=== PATIENT | male | born 1940 | race Caucasian/White ===

== ENCOUNTER 2016-12-24 18:55 | Inpatient (IN) | payer OTHER ==
[~2016-12-24] VITALS: Ht 185.4 cm; Wt 90.9 kg
[~2016-12-24 18:55] MED LIST: ALBUTEROL2.5 MG/31; AMLODIPINE10 MG PO; FLO4 PO; LOT20 PO; LOVASTATIN40 M1 PO; METOPROLOL25 MG PO; SPIRIVA; [UNRECOGNIZED DRUG - CODE] PO
[2016-12-24 19:51] LABS: BASOPHIL % 0.1 % (0-2); RED CELL DISTRIBUTION WIDTH 13.3 % (11.5-14.5)
[2016-12-24 19:58] LABS: CALCIUM 9.1 mg/dL (8.5-10.1); CARBON DIOXIDE 23.1 mmol/L (21-32); CHLORIDE SERUM 102 mmol/L (98-107); CREATININE SERUM 1.5 mg/dL (0.7-1.3); GLUCOSE SERUM 115 mg/dL (74-106); POTASSIUM SERUM 3.6 mmol/L (3.5-5.1); SODIUM SERUM 136 mmol/L (136-145)
[2016-12-24 19:59] LABS: PLATELET COUNT 123 x10^3mcL (130-400)
[2016-12-24 20:25] LABS: ALBUMIN 3.7 g/dL (3.4-5.0); ALKALINE PHOSPHATASE 90 U/L (46-116); ALT/SGPT 28 U/L (16-63); AST/SGOT 19 U/L (15-37); BILIRUBIN TOTAL 0.78 mg/dL (0.20-1.00); TOTAL PROTEIN, SERUM 7.1 g/dL (6.4-8.2)
[2016-12-24 22:17] LABS: microscopic required? NO
[2016-12-24 22:27] LABS: urine erythrocyte NEGATIVE (NEGATIVE)
[2016-12-24] MEDS ORDERED: LIPITOR80 MG PO (23:01)
[2016-12-24] MEDS ORDERED: ISOSORBIDE MONO30 MG PO (23:02)
[2016-12-24] MEDS ORDERED: ASPIRIN ADULT L81 M5 PO (23:02)
[2016-12-24] MEDS ORDERED: CLOPIDOGREL75 M1 PO (23:03)
[2016-12-24] MEDS ORDERED: LISINOPRIL20 MG PO (23:03)
[2016-12-24 23:48] VITALS: BP 120/55
[2016-12-25 00:13] LABS: MAGNESIUM 1.7 mg/dL (1.8-2.4); PHOSPHOROUS 1.2 mg/dL (2.5-4.9)
[2016-12-25 00:14] LABS: CHOLESTEROL/HDL RATIO 2.2
[2016-12-25 00:23] LABS: FREE T4 1.46 ng/dL (0.76-1.46); FREE THYROXINE INDEX 3.7 ug/dL (1.4-4.5); T4(THYROXINE) 9.1 ug/dL (4.7-13.3)
[2016-12-25 00:56] LABS: T3 TOTAL 0.99 ng/mL
[2016-12-25 06:20] VITALS: BP 108/51
[2016-12-25 06:29] LABS: BASOPHIL % 0.3 % (0-2); RED CELL DISTRIBUTION WIDTH 13.4 % (11.5-14.5)
[2016-12-25 06:48] LABS: PLATELET COUNT 107 x10^3mcL (130-400)
[2016-12-25 07:04] LABS: CALCIUM 8.4 mg/dL (8.5-10.1); CARBON DIOXIDE 26.1 mmol/L (21-32); CHLORIDE SERUM 110 mmol/L (98-107); CREATININE SERUM 1.4 mg/dL (0.7-1.3); GLUCOSE SERUM 102 mg/dL (74-106); POTASSIUM SERUM 4.1 mmol/L (3.5-5.1); SODIUM SERUM 142 mmol/L (136-145)
[2016-12-25 08:43] VITALS: BP 101/54
[2016-12-25 14:09] VITALS: BP 125/52
[2016-12-25 18:42] VITALS: BP 100/43
[2016-12-25 21:26] VITALS: BP 124/59
[2016-12-26 05:41] VITALS: BP 127/45
[2016-12-26 06:14] LABS: RED CELL DISTRIBUTION WIDTH 13.3 % (11.5-14.5)
[2016-12-26 06:41] LABS: CALCIUM 8.6 mg/dL (8.5-10.1); CARBON DIOXIDE 22.2 mmol/L (21-32); CHLORIDE SERUM 111 mmol/L (98-107); CREATININE SERUM 1.1 mg/dL (0.7-1.3); GLUCOSE SERUM 106 mg/dL (74-106); MAGNESIUM 2.3 mg/dL (1.8-2.4); PHOSPHOROUS 2.8 mg/dL (2.5-4.9); POTASSIUM SERUM 4.2 mmol/L (3.5-5.1); SODIUM SERUM 142 mmol/L (136-145)
[2016-12-26 06:56] LABS: BASOPHIL % 0 % (0-2); PLATELET COUNT 106 x10^3mcL (130-400)
[2016-12-26 09:01] VITALS: BP 121/60
[2016-12-26] MEDS ORDERED: LAC PO (10:44)
[2016-12-26] MEDS ORDERED: LEVAQUIN750 MG PO (10:45)
[2016-12-26] MEDS ORDERED: CLEOCIN HCL300 MG PO (10:47)
[2016-12-26 12:59] VITALS: BP 121/60
== END 2016-12-26 14:24 | disposition home or self-care (01) | DRG 177 ==
LOC: ED 18:55 → DU 22:55
PROVIDERS: Emergency Medicine; ADMIT Family Medicine Sports Medicine
DX: J69.0 Pneumonitis due to inhalation of food and vomit (principal); N17.0 Acute kidney failure with tubular necrosis; J44.1 Chronic obstructive pulmonary disease with (acute) exacerbation; I10 Essential (primary) hypertension; F43.23 Adjustment disorder with mixed anxiety and depressed mood; K21.9 Gastro-esophageal reflux disease without esophagitis; E83.42 Hypomagnesemia; D64.9 Anemia, unspecified; N40.0 Benign prostatic hyperplasia without lower urinary tract symptoms; Z95.5 Presence of coronary angioplasty implant and graft; Z87.891 Personal history of nicotine dependence; I25.10 Atherosclerotic heart disease of native coronary artery without angina pectoris; Z86.14 Personal history of Methicillin resistant Staphylococcus aureus infection; Z68.26 Body mass index [BMI] 26.0-26.9, adult
CPT/HCPCS: 83880; 84439; 94150; 97116-GP; J1956; J2920; J2930; J3475; J3490; J7030; J7620

== ENCOUNTER 2017-10-24 20:12 | Emergency (ER) | payer OTHER ==
[~2017-10-24] VITALS: Ht 185.4 cm; Wt 90.8 kg
[~2017-10-24 20:12] MED LIST changes: +ASPIRIN ADULT L81 M5 PO; +CLEOCIN HCL300 MG PO; +CLOPIDOGREL75 M1 PO; +ISOSORBIDE MONO30 MG PO; +LAC PO; +LEVAQUIN750 MG PO; +LIPITOR80 MG PO; +LISINOPRIL20 MG PO
[2017-10-24 20:56] VITALS: Ht 185.4 cm; Wt 90.8 kg
[2017-10-24 22:48] LABS: UA SPECIFIC GRAVITY <=1.005 (1.005-1.035); microscopic required? YES; urine erythrocyte 3+ (NEGATIVE)
[2017-10-24 22:50] LABS: BASOPHIL % 0.4 % (0-2); PLATELET COUNT 140 x10^3mcL (130-400); RED CELL DISTRIBUTION WIDTH 14.3 % (11.5-14.5)
[2017-10-24 22:57] LABS: CALCIUM 8.8 mg/dL (8.5-10.1); CARBON DIOXIDE 27.8 mmol/L (21-32); CHLORIDE SERUM 107 mmol/L (98-107); CREATININE SERUM 1.2 mg/dL (0.7-1.3); GLUCOSE SERUM 97 mg/dL (74-106); POTASSIUM SERUM 3.7 mmol/L (3.5-5.1); SODIUM SERUM 139 mmol/L (136-145)
[2017-10-24 23:02] LABS: ALBUMIN 3.6 g/dL (3.4-5.0); ALKALINE PHOSPHATASE 74 U/L (46-116); ALT/SGPT 25 U/L (16-63); AST/SGOT 22 U/L (15-37); BILIRUBIN TOTAL 0.64 mg/dL (0.20-1.00); LIPASE 64 IU/L (73-393); TOTAL PROTEIN, SERUM 6.9 g/dL (6.4-8.2)
[2017-10-25 00:14] VITALS: BP 145/89
== END 2017-10-25 00:14 | disposition home or self-care (01) ==
LOC: ED 20:12
PROVIDERS: Emergency Medicine
DX: N40.1 Benign prostatic hyperplasia with lower urinary tract symptoms (principal); I50.9 Heart failure, unspecified; I11.0 Hypertensive heart disease with heart failure; J45.909 Unspecified asthma, uncomplicated
CPT/HCPCS: J1885

== ENCOUNTER 2018-01-24 17:33 | Inpatient (IN) | payer OTHER ==
[~2018-01-24] VITALS: Ht 185.4 cm; Wt 88.9 kg
[2018-01-24 17:50] VITALS: Ht 185.4 cm; Wt 88.9 kg
[2018-01-24 18:22] LABS: microscopic required? YES; urine erythrocyte NEGATIVE (NEGATIVE)
[2018-01-24 18:22] LABS: BASOPHIL % 0 % (0-2); PLATELET COUNT 114 x10^3mcL (130-400)
[2018-01-24 18:26] LABS: CALCIUM 8.6 mg/dL (8.5-10.1); CARBON DIOXIDE 23.5 mmol/L (21-32); CHLORIDE SERUM 108 mmol/L (98-107); CREATININE SERUM 1.4 mg/dL (0.7-1.3); GLUCOSE SERUM 139 mg/dL (74-106); POTASSIUM SERUM 3.6 mmol/L (3.5-5.1); SODIUM SERUM 144 mmol/L (136-145)
[2018-01-24 18:32] LABS: ALBUMIN 3.7 g/dL (3.4-5.0); ALKALINE PHOSPHATASE 92 U/L (46-116); ALT/SGPT 32 U/L (16-63); AST/SGOT 18 U/L (15-37); BILIRUBIN TOTAL 0.65 mg/dL (0.20-1.00); TOTAL PROTEIN, SERUM 6.9 g/dL (6.4-8.2)
[2018-01-24] MEDS ORDERED: TRAMADOL HCL50 MG PO (19:31)
[2018-01-24] MEDS ORDERED: HYDRALAZINE HY100 MG PO (19:32)
[2018-01-24] MEDS ORDERED: LIPITOR40 MG PO (19:33)
[2018-01-24] MEDS ORDERED: PROSCAR5 MG PO (19:34)
[2018-01-24 19:44] LABS: MAGNESIUM 1.9 mg/dL (1.8-2.4); PHOSPHOROUS 1.7 mg/dL (2.5-4.9)
[2018-01-24 19:48] LABS: CHOLESTEROL/HDL RATIO 2.1
[2018-01-24 19:49] LABS: T3 TOTAL 1.12 ng/mL
[2018-01-24 19:57] LABS: FREE T4 1.21 ng/dL (0.76-1.46); FREE THYROXINE INDEX 3.8 ug/dL (1.4-4.5); T4(THYROXINE) 9.9 ug/dL (4.7-13.3)
[2018-01-24 22:28] VITALS: BP 122/61
[2018-01-24 23:21] VITALS: BP 122/61
[2018-01-25 05:40] VITALS: BP 113/56
[2018-01-25 06:27] LABS: RED CELL DISTRIBUTION WIDTH 13.8 % (11.5-14.5)
[2018-01-25 06:43] LABS: CALCIUM 8.4 mg/dL (8.5-10.1); CARBON DIOXIDE 24.7 mmol/L (21-32); CHLORIDE SERUM 106 mmol/L (98-107); CREATININE SERUM 1.6 mg/dL (0.7-1.3); GLUCOSE SERUM 161 mg/dL (74-106); POTASSIUM SERUM 3.8 mmol/L (3.5-5.1); SODIUM SERUM 141 mmol/L (136-145)
[2018-01-25 07:32] LABS: BASOPHIL % 0 % (0-2); PLATELET COUNT 105 x10^3mcL (130-400)
[2018-01-25 09:45] VITALS: BP 139/65
[2018-01-25 11:41] VITALS: BP 98/45
[2018-01-25 13:27] VITALS: BP 115/48
[2018-01-25 17:29] VITALS: BP 145/49
[2018-01-25 21:02] VITALS: BP 114/41
[2018-01-26 06:00] VITALS: BP 130/52
[2018-01-26 06:27] LABS: CALCIUM 8.3 mg/dL (8.5-10.1); CARBON DIOXIDE 25.8 mmol/L (21-32); CHLORIDE SERUM 113 mmol/L (98-107); CREATININE SERUM 1.3 mg/dL (0.7-1.3); GLUCOSE SERUM 161 mg/dL (74-106); MAGNESIUM 2.3 mg/dL (1.8-2.4); PHOSPHOROUS 3.1 mg/dL (2.5-4.9); POTASSIUM SERUM 4.7 mmol/L (3.5-5.1); SODIUM SERUM 144 mmol/L (136-145)
[2018-01-26 06:30] LABS: RED CELL DISTRIBUTION WIDTH 13.7 % (11.5-14.5)
[2018-01-26 06:38] LABS: BASOPHIL % 0 % (0-2); PLATELET COUNT 101 x10^3mcL (130-400)
[2018-01-26 09:51] VITALS: BP 143/47
[2018-01-26 13:01] VITALS: BP 124/48
[2018-01-26 17:44] VITALS: BP 136/42
[2018-01-26 20:36] VITALS: BP 143/35
[2018-01-27 05:38] VITALS: BP 143/62
[2018-01-27 07:54] LABS: CALCIUM 8.7 mg/dL (8.5-10.1); CARBON DIOXIDE 26.7 mmol/L (21-32); CHLORIDE SERUM 114 mmol/L (98-107); CREATININE SERUM 1.3 mg/dL (0.7-1.3); GLUCOSE SERUM 149 mg/dL (74-106); MAGNESIUM 2.3 mg/dL (1.8-2.4); PHOSPHOROUS 3.3 mg/dL (2.5-4.9); POTASSIUM SERUM 5.3 mmol/L (3.5-5.1); SODIUM SERUM 146 mmol/L (136-145)
[2018-01-27 09:13] VITALS: BP 148/51
[2018-01-27 09:30] LABS: BASOPHIL % 0 % (0-2); PLATELET COUNT 116 x10^3mcL (130-400); RED CELL DISTRIBUTION WIDTH 14.6 % (11.5-14.5)
[2018-01-27] MEDS ORDERED: LEVAQUIN750 MG PO (11:48)
[2018-01-27] MEDS ORDERED: PREDNISONE20 MG PO (11:48)
[2018-01-27] MEDS ORDERED: PREDNISONE10 MG PO ×2 (11:49→11:50)
[2018-01-27 11:50] VITALS: BP 128/55
[2018-01-27] MEDS ORDERED: PRE20 PO (11:50)
[2018-01-27 12:14] VITALS: BP 128/55
[2018-01-27 12:40] VITALS: BP 153/48
== END 2018-01-27 13:40 | disposition home or self-care (01) | DRG 871 ==
LOC: ED 17:33 → DU 19:09
PROVIDERS: Emergency Medicine; Internal Medicine
DX: A41.9 Sepsis, unspecified organism (principal); N17.0 Acute kidney failure with tubular necrosis; J96.01 Acute respiratory failure with hypoxia; N39.0 Urinary tract infection, site not specified; J44.1 Chronic obstructive pulmonary disease with (acute) exacerbation; E87.4 Mixed disorder of acid-base balance; R65.20 Severe sepsis without septic shock; I10 Essential (primary) hypertension; C67.9 Malignant neoplasm of bladder, unspecified; J20.9 Acute bronchitis, unspecified; D53.9 Nutritional anemia, unspecified; E83.39 Other disorders of phosphorus metabolism; I25.10 Atherosclerotic heart disease of native coronary artery without angina pectoris; Z99.81 Dependence on supplemental oxygen; Z68.27 Body mass index [BMI] 27.0-27.9, adult; Z95.1 Presence of aortocoronary bypass graft; Z95.5 Presence of coronary angioplasty implant and graft; F17.210 Nicotine dependence, cigarettes, uncomplicated
CPT/HCPCS: 83880; 84439; 97110-GP; 97116-GP; J0456; J0696; J1940; J1956; J2920; J3490; J7030; J7050; J7512; J7613; J7620; J7626; J7644; Q0092; Q9967

== ENCOUNTER 2018-02-10 16:31 | Inpatient (IN) | payer OTHER ==
[~2018-02-10] VITALS: Ht 185.4 cm; Wt 88.2 kg
[~2018-02-10 16:31] MED LIST changes: +ALBUD; -ALBUTEROL2.5 MG/31; +HYDRALAZINE HY100 MG PO; +LIPITOR40 MG PO; +METOPROLOL TART25 M1 PO; -METOPROLOL25 MG PO; +PRE20 PO; +PREDNISONE10 MG PO; +PREDNISONE20 MG PO; +PROSCAR5 MG PO; +TRAMADOL HCL50 MG PO
[2018-02-10 16:33] VITALS: Ht 185.4 cm; Wt 88.2 kg
[2018-02-10 18:53] LABS: BASOPHIL % 0.1 % (0-2); PLATELET COUNT 127 x10^3mcL (130-400); RED CELL DISTRIBUTION WIDTH 14.2 % (11.5-14.5)
[2018-02-10 19:10] LABS: microscopic required? YES; urine erythrocyte NEGATIVE (NEGATIVE)
[2018-02-10 19:15] LABS: ALKALINE PHOSPHATASE 66 U/L (46-116); ALT/SGPT 21 U/L (16-63); AST/SGOT 12 U/L (15-37); BILIRUBIN TOTAL 0.9 mg/dL (0.20-1.00); CALCIUM 8.8 mg/dL (8.5-10.1); CARBON DIOXIDE 25.9 mmol/L (21-32); CHLORIDE SERUM 104 mmol/L (98-107); CREATININE SERUM 1.2 mg/dL (0.7-1.3); GLUCOSE SERUM 165 mg/dL (74-106); POTASSIUM SERUM 4.1 mmol/L (3.5-5.1); SODIUM SERUM 137 mmol/L (136-145)
[2018-02-10 19:18] LABS: ALBUMIN 2.8 g/dL (3.4-5.0); TOTAL PROTEIN, SERUM 6.1 g/dL (6.4-8.2)
[2018-02-10 22:36] LABS: MAGNESIUM 2.1 mg/dL (1.8-2.4); PHOSPHOROUS 2.4 mg/dL (2.5-4.9)
[2018-02-10 22:45] LABS: T3 TOTAL 0.84 ng/mL
[2018-02-10 22:48] LABS: FREE T4 1.22 ng/dL (0.76-1.46); FREE THYROXINE INDEX 2.4 ug/dL (1.4-4.5); T4(THYROXINE) 6.4 ug/dL (4.7-13.3)
[2018-02-11] VITALS (7 sets, daily range): BP systolic 106–150; BP diastolic 59–80
[2018-02-11 04:14] LABS: BASOPHIL % 0.3 % (0-2); PLATELET COUNT 128 x10^3mcL (130-400); RED CELL DISTRIBUTION WIDTH 14.1 % (11.5-14.5)
[2018-02-11 04:20] LABS: CALCIUM 8.6 mg/dL (8.5-10.1); CARBON DIOXIDE 26.7 mmol/L (21-32); CHLORIDE SERUM 108 mmol/L (98-107); CREATININE SERUM 1.2 mg/dL (0.7-1.3); GLUCOSE SERUM 139 mg/dL (74-106); MAGNESIUM 2.2 mg/dL (1.8-2.4); PHOSPHOROUS 3.6 mg/dL (2.5-4.9); POTASSIUM SERUM 4.1 mmol/L (3.5-5.1); SODIUM SERUM 143 mmol/L (136-145)
[2018-02-11 15:28] LABS: AMPHETAMINE QUAL UR NONE DETECTED (See below)
[2018-02-12 06:03] VITALS: BP 139/64
[2018-02-12 06:08] LABS: CALCIUM 8.7 mg/dL (8.5-10.1); CARBON DIOXIDE 27.9 mmol/L (21-32); CHLORIDE SERUM 109 mmol/L (98-107); CREATININE SERUM 1.3 mg/dL (0.7-1.3); GLUCOSE SERUM 117 mg/dL (74-106); POTASSIUM SERUM 5.3 mmol/L (3.5-5.1); SODIUM SERUM 140 mmol/L (136-145)
[2018-02-12 07:28] LABS: BASOPHIL % 0.2 % (0-2); PLATELET COUNT 123 x10^3mcL (130-400); RED CELL DISTRIBUTION WIDTH 14.4 % (11.5-14.5)
[2018-02-12 10:21] VITALS: BP 146/69
[2018-02-12 13:00] VITALS: BP 121/56
[2018-02-12 16:28] VITALS: BP 132/69
[2018-02-12 21:04] VITALS: BP 146/53
[2018-02-13 04:28] VITALS: BP 146/53
[2018-02-13 05:51] VITALS: BP 150/58
[2018-02-13 06:11] LABS: BASOPHIL % 0.3 % (0-2); PLATELET COUNT 131 x10^3mcL (130-400); RED CELL DISTRIBUTION WIDTH 14.1 % (11.5-14.5)
[2018-02-13 07:12] LABS: CALCIUM 9.2 mg/dL (8.5-10.1); CARBON DIOXIDE 24.5 mmol/L (21-32); CHLORIDE SERUM 109 mmol/L (98-107); CREATININE SERUM 1.3 mg/dL (0.7-1.3); GLUCOSE SERUM 94 mg/dL (74-106); POTASSIUM SERUM 4.6 mmol/L (3.5-5.1); SODIUM SERUM 142 mmol/L (136-145)
[2018-02-13 08:20] VITALS: BP 147/66
[2018-02-13 13:15] VITALS: BP 108/49
[2018-02-13 17:15] VITALS: BP 101/40
[2018-02-13 20:42] VITALS: BP 124/82
[2018-02-14 05:11] VITALS: BP 133/50
[2018-02-14 06:15] LABS: BASOPHIL % 0.5 % (0-2); RED CELL DISTRIBUTION WIDTH 14.4 % (11.5-14.5)
[2018-02-14 06:44] LABS: CALCIUM 8.9 mg/dL (8.5-10.1); CARBON DIOXIDE 29.3 mmol/L (21-32); CHLORIDE SERUM 109 mmol/L (98-107); CREATININE SERUM 1.3 mg/dL (0.7-1.3); GLUCOSE SERUM 91 mg/dL (74-106); MAGNESIUM 2.2 mg/dL (1.8-2.4); PHOSPHOROUS 3.8 mg/dL (2.5-4.9); POTASSIUM SERUM 4.3 mmol/L (3.5-5.1); SODIUM SERUM 143 mmol/L (136-145)
[2018-02-14 06:53] LABS: PLATELET COUNT 129 x10^3mcL (130-400)
[2018-02-14 08:50] VITALS: BP 148/69
[2018-02-14 12:24] VITALS: BP 127/54
[2018-02-14 15:48] VITALS: BP 121/56
[2018-02-14 20:47] VITALS: BP 132/43
[2018-02-15 04:41] VITALS: BP 171/55
[2018-02-15 07:02] LABS: CALCIUM 9.1 mg/dL (8.5-10.1); CARBON DIOXIDE 28.9 mmol/L (21-32); CHLORIDE SERUM 109 mmol/L (98-107); CREATININE SERUM 1.3 mg/dL (0.7-1.3); GLUCOSE SERUM 98 mg/dL (74-106); MAGNESIUM 2.3 mg/dL (1.8-2.4); PHOSPHOROUS 3.9 mg/dL (2.5-4.9); POTASSIUM SERUM 4.4 mmol/L (3.5-5.1); SODIUM SERUM 144 mmol/L (136-145)
[2018-02-15 07:10] LABS: BASOPHIL % 0.3 % (0-2); PLATELET COUNT 131 x10^3mcL (130-400); RED CELL DISTRIBUTION WIDTH 13.2 % (11.5-14.5)
[2018-02-15 09:07] VITALS: BP 121/53
[2018-02-15 12:51] VITALS: BP 127/70
[2018-02-15 16:35] VITALS: BP 128/85
[2018-02-15 22:51] VITALS: BP 138/80
[2018-02-16 06:00] VITALS: BP 125/58
[2018-02-16 06:09] LABS: CALCIUM 8.6 mg/dL (8.5-10.1); CARBON DIOXIDE 27.2 mmol/L (21-32); CHLORIDE SERUM 109 mmol/L (98-107); CREATININE SERUM 1.2 mg/dL (0.7-1.3); GLUCOSE SERUM 98 mg/dL (74-106); MAGNESIUM 2.2 mg/dL (1.8-2.4); PHOSPHOROUS 3.6 mg/dL (2.5-4.9); POTASSIUM SERUM 3.9 mmol/L (3.5-5.1); SODIUM SERUM 141 mmol/L (136-145)
[2018-02-16 06:11] LABS: BASOPHIL % 0.3 % (0-2)
[2018-02-16 06:34] LABS: PLATELET COUNT 123 x10^3mcL (130-400)
[2018-02-16 08:03] VITALS: BP 147/64
[2018-02-16 12:51] VITALS: BP 123/59
[2018-02-16 13:39] VITALS: BP 123/59
[2018-02-16] MEDS ORDERED: VANCO 1 GR1 GM/150 M IV (13:44)
== END 2018-02-16 17:45 | disposition home health service (06) | DRG 871 ==
LOC: ED 16:31 → DU 21:54
PROVIDERS: Emergency Medicine; General Practice; Internal Medicine
DX: A41.9 Sepsis, unspecified organism (principal); E43 Unspecified severe protein-calorie malnutrition; N17.0 Acute kidney failure with tubular necrosis; N12 Tubulo-interstitial nephritis, not specified as acute or chronic; I24.9 Acute ischemic heart disease, unspecified; E83.39 Other disorders of phosphorus metabolism; C67.9 Malignant neoplasm of bladder, unspecified; N40.0 Benign prostatic hyperplasia without lower urinary tract symptoms; E78.5 Hyperlipidemia, unspecified; D64.9 Anemia, unspecified; D69.6 Thrombocytopenia, unspecified; E87.5 Hyperkalemia; B95.7 Other staphylococcus as the cause of diseases classified elsewhere; I25.10 Atherosclerotic heart disease of native coronary artery without angina pectoris; Z98.61 Coronary angioplasty status
CPT/HCPCS: 82962; 83880; 84439; 94150; A9500; C9113; J0696; J2270; J2785; J3370; J7030; J7512; J7620; Q0092

== ENCOUNTER 2018-04-11 18:48 | Inpatient (IN) | payer OTHER ==
[~2018-04-11] VITALS: Ht 182.9 cm; Wt 95.0 kg
[~2018-04-11 18:48] MED LIST changes: +VANCO 1 GR1 GM/150 M IV
[2018-04-11] MEDS ORDERED: ASPIR 8181 MG PO (19:18)
[2018-04-11] MEDS ORDERED: ISOSORBIDE MONO30 MG PO (19:18)
[2018-04-11] MEDS ORDERED: PRINIVIL20 MG PO (19:19)
[2018-04-11] MEDS ORDERED: PLA75 PO (19:19)
[2018-04-11] MEDS ORDERED: PROSCAR5 MG PO (19:20)
[2018-04-11 19:31] LABS: BASOPHIL % 0.1 % (0-2); RED CELL DISTRIBUTION WIDTH 13.8 % (11.5-14.5)
[2018-04-11 19:32] LABS: PLATELET COUNT 129 x10^3mcL (130-400)
[2018-04-11 19:54] LABS: ALBUMIN 3.5 g/dL (3.4-5.0); ALKALINE PHOSPHATASE 83 U/L (46-116); ALT/SGPT 27 U/L (16-63); AST/SGOT 14 U/L (15-37); BILIRUBIN TOTAL 1.2 mg/dL (0.20-1.00); CALCIUM 9.1 mg/dL (8.5-10.1); CARBON DIOXIDE 23.9 mmol/L (21-32); CHLORIDE SERUM 103 mmol/L (98-107); CREATININE SERUM 1.6 mg/dL (0.7-1.3); FREE T4 1.07 ng/dL (0.76-1.46); GLUCOSE SERUM 155 mg/dL (74-106); LIPASE 518 IU/L (73-393); POTASSIUM SERUM 3.8 mmol/L (3.5-5.1); SODIUM SERUM 140 mmol/L (136-145); TOTAL PROTEIN, SERUM 6.9 g/dL (6.4-8.2)
[2018-04-11 21:15] LABS: PHOSPHOROUS 1.7 mg/dL (2.5-4.9)
[2018-04-11 21:24] LABS: CHOLESTEROL/HDL RATIO 2.1
[2018-04-11 23:17] LABS: UA SPECIFIC GRAVITY 1.025 (1.005-1.035); microscopic required? YES; urine erythrocyte 2+ (NEGATIVE)
[2018-04-11 23:28] LABS: AMPHETAMINE QUAL UR NONE DETECTED (See below)
[2018-04-12] VITALS (7 sets, daily range): BP systolic 78–140; BP diastolic 40–78; Ht 182.9 cm; Wt 95.0 kg
[2018-04-12 00:47] LABS: CALCIUM 7.9 mg/dL (8.5-10.1); CARBON DIOXIDE 23.6 mmol/L (21-32); CHLORIDE SERUM 109 mmol/L (98-107); CREATININE SERUM 1.7 mg/dL (0.7-1.3); GLUCOSE SERUM 160 mg/dL (74-106); POTASSIUM SERUM 4.4 mmol/L (3.5-5.1); SODIUM SERUM 139 mmol/L (136-145)
[2018-04-12 05:27] LABS: RED CELL DISTRIBUTION WIDTH 13.9 % (11.5-14.5)
[2018-04-12 05:28] LABS: BASOPHIL % 0 % (0-2); PLATELET COUNT 90 x10^3mcL (130-400)
[2018-04-12 05:46] LABS: CARBON DIOXIDE 21.1 mmol/L (21-32); CHLORIDE SERUM 109 mmol/L (98-107); CREATININE SERUM 1.6 mg/dL (0.7-1.3); GLUCOSE SERUM 106 mg/dL (74-106); MAGNESIUM 1.7 mg/dL (1.8-2.4); SODIUM SERUM 141 mmol/L (136-145)
[2018-04-13 04:07] VITALS: BP 115/57
[2018-04-13 05:06] LABS: CALCIUM 7.9 mg/dL (8.5-10.1); CARBON DIOXIDE 23.3 mmol/L (21-32); CHLORIDE SERUM 109 mmol/L (98-107); CREATININE SERUM 1.6 mg/dL (0.7-1.3); GLUCOSE SERUM 116 mg/dL (74-106); MAGNESIUM 1.9 mg/dL (1.8-2.4); PHOSPHOROUS 2.6 mg/dL (2.5-4.9); SODIUM SERUM 139 mmol/L (136-145)
[2018-04-13 05:12] LABS: BASOPHIL % 0.1 % (0-2); PLATELET COUNT 73 x10^3mcL (130-400); RED CELL DISTRIBUTION WIDTH 13.7 % (11.5-14.5)
[2018-04-13 08:00] VITALS: BP 109/50
[2018-04-13 12:03] VITALS: BP 133/85
[2018-04-13 15:08] VITALS: BP 141/66
[2018-04-13 17:46] VITALS: BP 159/61
[2018-04-13 20:32] VITALS: BP 146/76
[2018-04-14 05:34] VITALS: BP 167/87
[2018-04-14 06:54] LABS: CALCIUM 8.3 mg/dL (8.5-10.1); CARBON DIOXIDE 23.3 mmol/L (21-32); CHLORIDE SERUM 109 mmol/L (98-107); CREATININE SERUM 1.5 mg/dL (0.7-1.3); GLUCOSE SERUM 117 mg/dL (74-106); POTASSIUM SERUM 3.7 mmol/L (3.5-5.1); SODIUM SERUM 139 mmol/L (136-145)
[2018-04-14 07:53] LABS: BASOPHIL % 0.3 % (0-2); PLATELET COUNT 75 x10^3mcL (130-400); RED CELL DISTRIBUTION WIDTH 13.5 % (11.5-14.5)
[2018-04-14 09:07] VITALS: BP 146/76
[2018-04-14 12:42] VITALS: BP 128/71
[2018-04-14 17:36] VITALS: BP 140/79
[2018-04-14 20:36] VITALS: BP 125/55
[2018-04-15 05:39] VITALS: BP 139/73
[2018-04-15 07:19] LABS: BASOPHIL % 0.3 % (0-2); RED CELL DISTRIBUTION WIDTH 13.4 % (11.5-14.5)
[2018-04-15 07:20] LABS: CALCIUM 8.3 mg/dL (8.5-10.1); CARBON DIOXIDE 25.7 mmol/L (21-32); CHLORIDE SERUM 109 mmol/L (98-107); CREATININE SERUM 1.4 mg/dL (0.7-1.3); GLUCOSE SERUM 121 mg/dL (74-106); POTASSIUM SERUM 3.6 mmol/L (3.5-5.1); SODIUM SERUM 144 mmol/L (136-145)
[2018-04-15 07:25] LABS: PLATELET COUNT 89 x10^3mcL (130-400)
[2018-04-15 07:45] VITALS: BP 98/62
[2018-04-15 10:48] VITALS: BP 98/62
[2018-04-15 12:00] VITALS: BP 151/66
[2018-04-15 16:25] VITALS: BP 144/54
[2018-04-15 20:51] VITALS: BP 134/72
[2018-04-16 05:55] VITALS: BP 124/74
[2018-04-16 07:37] LABS: CALCIUM 8.6 mg/dL (8.5-10.1); CARBON DIOXIDE 27.4 mmol/L (21-32); CHLORIDE SERUM 109 mmol/L (98-107); CREATININE SERUM 1.3 mg/dL (0.7-1.3); GLUCOSE SERUM 117 mg/dL (74-106); POTASSIUM SERUM 3.6 mmol/L (3.5-5.1); SODIUM SERUM 144 mmol/L (136-145)
[2018-04-16 07:57] LABS: BASOPHIL % 0.2 % (0-2); PLATELET COUNT 94 x10^3mcL (130-400); RED CELL DISTRIBUTION WIDTH 13.6 % (11.5-14.5)
[2018-04-16 08:00] VITALS: BP 158/69
[2018-04-16 12:00] VITALS: BP 156/44
[2018-04-16 16:45] VITALS: BP 153/53
[2018-04-16 20:27] VITALS: BP 111/61
[2018-04-16 20:57] VITALS: BP 138/55
[2018-04-17 06:03] VITALS: BP 152/55
[2018-04-17 07:11] LABS: CALCIUM 8.9 mg/dL (8.5-10.1); CARBON DIOXIDE 24.7 mmol/L (21-32); CHLORIDE SERUM 107 mmol/L (98-107); CREATININE SERUM 1.4 mg/dL (0.7-1.3); GLUCOSE SERUM 167 mg/dL (74-106); POTASSIUM SERUM 4.3 mmol/L (3.5-5.1); SODIUM SERUM 140 mmol/L (136-145)
[2018-04-17 07:12] LABS: RED CELL DISTRIBUTION WIDTH 13.5 % (11.5-14.5)
[2018-04-17 07:25] LABS: PLATELET COUNT 115 x10^3mcL (130-400)
[2018-04-17 08:44] VITALS: BP 135/51
[2018-04-17 11:29] LABS: BAND NEUTROPHIL 6 % (0-10); BASOPHIL 0 % (0-2); MONOCYTE 5 % (0-7); SEGMENTED NEUTROPHILS 76 % (37-75)
[2018-04-17 11:31] LABS: rbc morphology (normal/abnorm) ABNORMAL (NORMAL)
[2018-04-17 12:00] VITALS: BP 144/55
[2018-04-17 16:31] VITALS: BP 122/59
[2018-04-17 19:53] VITALS: BP 138/53
[2018-04-18 04:47] VITALS: BP 133/52
[2018-04-18 07:13] LABS: BASOPHIL % 0.4 % (0-2); PLATELET COUNT 145 x10^3mcL (130-400); RED CELL DISTRIBUTION WIDTH 13.8 % (11.5-14.5)
[2018-04-18 07:39] LABS: CALCIUM 8.9 mg/dL (8.5-10.1); CARBON DIOXIDE 24.5 mmol/L (21-32); CHLORIDE SERUM 108 mmol/L (98-107); CREATININE SERUM 1.4 mg/dL (0.7-1.3); GLUCOSE SERUM 151 mg/dL (74-106); POTASSIUM SERUM 4.3 mmol/L (3.5-5.1); SODIUM SERUM 139 mmol/L (136-145)
[2018-04-18 08:51] VITALS: BP 146/61
[2018-04-18 12:20] VITALS: BP 144/63
[2018-04-18 16:41] VITALS: BP 139/46
[2018-04-18 17:55] VITALS: BP 139/46
[2018-04-18 20:34] VITALS: BP 137/53
[2018-04-19 05:59] VITALS: BP 151/66
[2018-04-19 06:12] LABS: BASOPHIL % 0.4 % (0-2); PLATELET COUNT 186 x10^3mcL (130-400); RED CELL DISTRIBUTION WIDTH 13.5 % (11.5-14.5)
[2018-04-19 06:39] LABS: CALCIUM 9.7 mg/dL (8.5-10.1); CHLORIDE SERUM 109 mmol/L (98-107); CREATININE SERUM 1.3 mg/dL (0.7-1.3); GLUCOSE SERUM 148 mg/dL (74-106); POTASSIUM SERUM 4.3 mmol/L (3.5-5.1); SODIUM SERUM 142 mmol/L (136-145)
[2018-04-19] MEDS ORDERED: LEVAQUIN750 MG PO (09:27)
[2018-04-19 09:55] VITALS: BP 159/55
[2018-04-19 12:00] VITALS: BP 141/59
[2018-04-19 12:55] VITALS: BP 141/59
== END 2018-04-19 14:18 | disposition home or self-care (01) | DRG 871 ==
LOC: ED 18:48 → IC 20:39 → DU 20:39 → IC 04-12 00:18 → DU 04-13 15:18
PROVIDERS: Emergency Medicine; Internal Medicine; ADMIT Family Medicine
PROC: 05HM33Z Insertion of Infusion Device into Right Internal Jugular Vein, Percutaneous Approach (ICD-10-PCS; principal; 2018-04-12)
PROC: B543ZZA Ultrasonography of Right Jugular Veins, Guidance (ICD-10-PCS; 2018-04-12)
DX: A41.9 Sepsis, unspecified organism (principal); R65.21 Severe sepsis with septic shock; N17.0 Acute kidney failure with tubular necrosis; K85.90 Acute pancreatitis without necrosis or infection, unspecified; D61.810 Antineoplastic chemotherapy induced pancytopenia; N39.0 Urinary tract infection, site not specified; J44.1 Chronic obstructive pulmonary disease with (acute) exacerbation; C67.9 Malignant neoplasm of bladder, unspecified; B96.29 Other Escherichia coli [E. coli] as the cause of diseases classified elsewhere; D69.6 Thrombocytopenia, unspecified; E78.5 Hyperlipidemia, unspecified; E83.39 Other disorders of phosphorus metabolism; R80.9 Proteinuria, unspecified; N40.0 Benign prostatic hyperplasia without lower urinary tract symptoms; Z68.29 Body mass index [BMI] 29.0-29.9, adult; Z87.891 Personal history of nicotine dependence; Z95.5 Presence of coronary angioplasty implant and graft
CPT/HCPCS: 36556; 82962; 83880; 84439; 87804; 94150; J0461; J1642; J1815; J1956; J2060; J2270; J2405; J2543; J2920; J3370; J3475; J3490; J7030; J7060; J7620; Q0092

== ENCOUNTER 2018-04-27 19:36 | Inpatient (IN) | payer OTHER ==
[~2018-04-27] VITALS: Ht 185.4 cm; Wt 95.3 kg
[~2018-04-27 19:36] MED LIST changes: +ASPIR 8181 MG PO; +PLA75 PO; +PRINIVIL20 MG PO
[2018-04-27] MEDS ORDERED: FLO4 PO (20:12)
[2018-04-27 20:14] LABS: BASOPHIL % 0.6 % (0-2); PLATELET COUNT 186 x10^3mcL (130-400)
[2018-04-27] MEDS ORDERED: LIPITOR40 MG PO (20:15)
[2018-04-27 20:22] LABS: CALCIUM 7.5 mg/dL (8.5-10.1); CARBON DIOXIDE 24.3 mmol/L (21-32); CHLORIDE SERUM 109 mmol/L (98-107); CREATININE SERUM 1.5 mg/dL (0.7-1.3); GLUCOSE SERUM 146 mg/dL (74-106); POTASSIUM SERUM 3.2 mmol/L (3.5-5.1); SODIUM SERUM 144 mmol/L (136-145)
[2018-04-27 20:27] LABS: ALKALINE PHOSPHATASE 72 U/L (46-116); ALT/SGPT 28 U/L (16-63); AST/SGOT 14 U/L (15-37); BILIRUBIN TOTAL 0.3 mg/dL (0.20-1.00); HDL CHOLESTEROL 35 mg/dL (40-60); LIPASE 88 IU/L (73-393); TRIGLYCERIDES 153 mg/dL (<150)
[2018-04-27 20:30] LABS: ALBUMIN 2.5 g/dL (3.4-5.0); CHOLESTEROL 95 mg/dL (<200); CHOLESTEROL/HDL RATIO 2.7; TOTAL PROTEIN, SERUM 5.5 g/dL (6.4-8.2)
[2018-04-27 20:34] LABS: T3 TOTAL 0.86 ng/mL
[2018-04-27 20:35] LABS: microscopic required? YES; urine erythrocyte NEGATIVE (NEGATIVE)
[2018-04-27 20:54] LABS: FREE T4 1.15 ng/dL (0.76-1.46); FREE THYROXINE INDEX 2.6 ug/dL (1.4-4.5); T4(THYROXINE) 6.2 ug/dL (4.7-13.3)
[2018-04-28 00:29] VITALS: BP 118/64
[2018-04-28 00:35] VITALS: Ht 185.4 cm; Wt 95.3 kg
[2018-04-28 06:01] VITALS: BP 122/62
[2018-04-28 06:48] LABS: BASOPHIL % 0.8 % (0-2); PLATELET COUNT 162 x10^3mcL (130-400); RED CELL DISTRIBUTION WIDTH 14.1 % (11.5-14.5)
[2018-04-28 06:57] LABS: CALCIUM 7.9 mg/dL (8.5-10.1); CHLORIDE SERUM 114 mmol/L (98-107); CREATININE SERUM 1.3 mg/dL (0.7-1.3); GLUCOSE SERUM 97 mg/dL (74-106); PHOSPHOROUS 2.8 mg/dL (2.5-4.9); POTASSIUM SERUM 4.5 mmol/L (3.5-5.1); SODIUM SERUM 146 mmol/L (136-145)
[2018-04-28 10:17] VITALS: BP 131/57
[2018-04-28 14:24] VITALS: BP 126/71
[2018-04-28 17:28] VITALS: BP 142/46
[2018-04-28 22:32] VITALS: BP 142/49
[2018-04-29 06:39] LABS: PLATELET COUNT 156 x10^3mcL (130-400)
[2018-04-29 06:59] LABS: CALCIUM 9.1 mg/dL (8.5-10.1); CARBON DIOXIDE 27.6 mmol/L (21-32); CHLORIDE SERUM 111 mmol/L (98-107); GLUCOSE SERUM 94 mg/dL (74-106); MAGNESIUM 2.1 mg/dL (1.8-2.4); PHOSPHOROUS 3.4 mg/dL (2.5-4.9); POTASSIUM SERUM 4.6 mmol/L (3.5-5.1); SODIUM SERUM 146 mmol/L (136-145)
[2018-04-29 08:34] VITALS: BP 155/70
[2018-04-29 13:14] VITALS: BP 162/63
[2018-04-29 13:23] LABS: SEGMENTED NEUTROPHILS 50 % (37-75)
[2018-04-29 13:24] LABS: ATYPICAL LYMPH 0 %; BAND NEUTROPHIL 0 % (0-10); BASOPHIL 0 % (0-2); MONOCYTE 16 % (0-7); PLATELET MORPHOLOGY PLATELETS DECREASED; rbc morphology (normal/abnorm) ABNORMAL (NORMAL)
[2018-04-29 16:02] VITALS: BP 146/54
[2018-04-29 21:41] VITALS: BP 152/54
[2018-04-30 05:42] VITALS: BP 146/62
[2018-04-30 07:43] LABS: CHLORIDE SERUM 111 mmol/L (98-107); GLUCOSE SERUM 98 mg/dL (74-106); POTASSIUM SERUM 4.5 mmol/L (3.5-5.1); SODIUM SERUM 146 mmol/L (136-145)
[2018-04-30 07:57] LABS: PLATELET COUNT 141 x10^3mcL (130-400); RED CELL DISTRIBUTION WIDTH 13.7 % (11.5-14.5)
[2018-04-30 09:00] VITALS: BP 164/50
[2018-04-30 12:22] LABS: ATYPICAL LYMPH 0 %; BAND NEUTROPHIL 0 % (0-10); BASOPHIL 0 % (0-2); BLAST 0 % (0); METAMYELOCTE 0 % (0-2); MONOCYTE 20 % (0-7); MYELOCYTE 0 % (0-2); PROMYELOCYTE 0 % (0-0); SEGMENTED NEUTROPHILS 40 % (37-75)
[2018-04-30 12:24] LABS: PLATELET MORPHOLOGY PLATELETS DECREASED; rbc morphology (normal/abnorm) ABNORMAL (NORMAL)
[2018-04-30 12:43] VITALS: BP 145/55
== END 2018-04-30 14:24 | disposition home or self-care (01) | DRG 391 ==
LOC: ED 19:36 → DU 23:32
PROVIDERS: Specialist; ADMIT Family Medicine
DX: K21.9 Gastro-esophageal reflux disease without esophagitis (principal); N17.0 Acute kidney failure with tubular necrosis; E43 Unspecified severe protein-calorie malnutrition; E87.2 Acidosis; E86.0 Dehydration; I95.9 Hypotension, unspecified; K59.00 Constipation, unspecified; K57.30 Diverticulosis of large intestine without perforation or abscess without bleeding; E83.51 Hypocalcemia; E87.6 Hypokalemia; I10 Essential (primary) hypertension; E78.5 Hyperlipidemia, unspecified; N40.0 Benign prostatic hyperplasia without lower urinary tract symptoms; F17.210 Nicotine dependence, cigarettes, uncomplicated; Z68.25 Body mass index [BMI] 25.0-25.9, adult; Z85.51 Personal history of malignant neoplasm of bladder; Z95.5 Presence of coronary angioplasty implant and graft
CPT/HCPCS: 82962; 83880; 84439; J2405; J7030; Q0092; Q9966; Q9967

== ENCOUNTER 2019-05-03 17:44 | Emergency (ER) | payer OTHER ==
[~2019-05-03] VITALS: Ht 188 cm; Wt 97.5 kg
[2019-05-03 17:55] VITALS: Ht 188 cm; Wt 97.5 kg
[2019-05-03 23:00] VITALS: BP 136/74
== END 2019-05-03 22:22 | disposition home or self-care (01) ==
LOC: ED 17:44
DX: R10.9 Unspecified abdominal pain (principal); M25.551 Pain in right hip; J44.9 Chronic obstructive pulmonary disease, unspecified; I11.0 Hypertensive heart disease with heart failure; I50.9 Heart failure, unspecified; E11.9 Type 2 diabetes mellitus without complications; Z85.51 Personal history of malignant neoplasm of bladder; W06.XXXA Fall from bed, initial encounter; Y93.89 Activity, other specified; Y92.89 Other specified places as the place of occurrence of the external cause; Y99.8 Other external cause status